=== PATIENT | male | born 1960 ===

== ENCOUNTER 2019-04-20 08:33 | Emergency (ER) | payer MEDICAID ==
[~2019-04-20] VITALS: Ht 165.1 cm; Wt 54.0 kg
[2019-04-20 08:39] VITALS: BP 128/62
--- NOTE | 2019-04-20 09:43 | NUR ---
er admiting just came back and told me the charge nurse that this pt. just slammed out of the lobby cussing and swearing
== END 2019-04-20 09:46 | disposition left against medical advice (07) ==
LOC: ER 08:35
DX: M79.645 Pain in left finger(s) (principal); Z53.21 Procedure and treatment not carried out due to patient leaving prior to being seen by health care provider